=== PATIENT | male | born 1935 | race Caucasian/White ===

== ENCOUNTER → 2024-01-08 12:27 | Outpatient (REF) | payer OTHER, SELFPAY ==
[2024-01-13 16:42] LABS: Hemochromatosis Specimen Whole Blood
== END ==
LOC: RAD 12:27
PROVIDERS: ATTENDING PHYSICIAN Internal Medicine Critical Care Medicine; FAMILY PHYSICIAN Internal Medicine Geriatric Medicine
DX: R91.8 Other nonspecific abnormal finding of lung field (principal); Z83.49 Family history of other endocrine, nutritional and metabolic diseases
CPT/HCPCS: 36415; 71250; 81256

== ENCOUNTER → 2024-12-13 08:54 | Outpatient (REF) | payer OTHER, SELFPAY | LOC: RCS 08:54 | PROVIDERS: ATTENDING PHYSICIAN Internal Medicine Geriatric Medicine | DX: R07.89 Other chest pain (principal); I35.8 Other nonrheumatic aortic valve disorders; I36.1 Nonrheumatic tricuspid (valve) insufficiency | CPT/HCPCS: 93306 ==

== ENCOUNTER → 2025-09-14 13:21 | Outpatient (REF) | payer OTHER, SELFPAY ==
[2025-09-14 18:38] LABS: Urine Character Cloudy (Clear)
[2025-09-14 18:55] LABS: Urine Red Blood Cell >100 /HPF (0-2)
== END ==
LOC: CLAB 13:21
PROVIDERS: ATTENDING PHYSICIAN Nurse Practitioner Adult Health
DX: R31.9 Hematuria, unspecified (principal)
CPT/HCPCS: 81003; 81015; 87086

== ENCOUNTER → 2025-09-21 07:47 | Outpatient (REF) | payer OTHER, SELFPAY ==
[2025-09-21 09:34] LABS: ALT (SGPT) 42 U/L (0-50); AST (SGOT) 24 U/L (17-59); Albumin 4.2 g/dl (3.5-5.0); Alkaline Phosphatase 69 U/L (38-126); Blood Urea Nitrogen 19 mg/dl (9-20); Calcium 9.4 mg/dl (8.4-10.2); Carbon Dioxide 29 mmol/L (22-30); Chloride 102 mmol/L (98-107); Glucose 98 mg/dl (70-99); Potassium 5.2 mmol/L (3.5-5.1); Sodium 136 mmol/L (135-145); Total Protein 6.9 g/dl (6.3-8.2); eGFR > 60.00
== END ==
LOC: REG 07:47
PROVIDERS: ATTENDING PHYSICIAN Nurse Practitioner Adult Health; FAMILY PHYSICIAN Internal Medicine Geriatric Medicine; REFERRING PHYSICIAN Specialist
DX: Z01.812 Encounter for preprocedural laboratory examination (principal); R73.01 Impaired fasting glucose; R31.9 Hematuria, unspecified
CPT/HCPCS: 36415; 80053; 87086

== ENCOUNTER → 2025-09-25 14:29 | Outpatient (REF) | payer OTHER, SELFPAY | LOC: RAD 14:29 | PROVIDERS: ATTENDING PHYSICIAN Nurse Practitioner Adult Health; FAMILY PHYSICIAN Internal Medicine Geriatric Medicine | DX: R31.9 Hematuria, unspecified (principal) | CPT/HCPCS: 74178; Q9967 ==